=== PATIENT | female | born 1950 | race Caucasian/White ===

== ENCOUNTER 2019-05-28 09:40 | Emergency (ER) | payer MEDICARE, BC, SELFPAY ==
[2019-05-28 09:59] VITALS: BP 130/59; PULSE 78; RESP 16; TEMP 37.2; O2SAT 99
--- NOTE | 2019-05-28 10:02 | ED.SKABFB ---
HPI - Skin/Abscess/Foreign Bdy General Chief complaint: Skin/Abscess/Foreign Body Stated complaint: Rash Time Seen by Provider: 05/28/19 10:02 Source: patient and RN notes reviewed History of Present Illness HPI narrative: Patient is a 68-year-old female that presents the urgent care with complaints of poison [place] to the forehead, arms, chest. Patient states that she came in contact with poison [place] approximately 1 week ago while doing yard work and it started behind the right knee. Patient states that in some areas it has cleared up but in other areas it is causing a lot of itching and burning. Patient denies any upper respiratory symptoms. No other acute complaints. No acute distress noted. Patient read the plan of care. Related Data Home Medications Medication Instructions Recorded Confirmed diltiazem HCl 240 mg PO DAILY 05/28/19 05/28/19 hydrochlorothiazide 25 mg PO DAILY 05/28/19 05/28/19 ibuprofen 800 mg PO TID 05/28/19 05/28/19 Allergies Allergy/AdvReac Type Severity Reaction Status Date / Time No Known Allergies Allergy Verified 05/28/19 10:12 Review of Systems Review of Systems: Narrative: CONSTITUTIONAL: Denies fever, chills, or sweats. EYES: Denies visual changes, redness, or discharge. ENT: Denies rhinorrhea, congestion, sore throat, or otalgia. CARDIOVASCULAR: Denies chest pain, palpitations, or edema. RESPIRATORY: Denies cough or dyspnea. GASTROINTESTINAL: Denies abdominal pain, nausea, vomiting, or diarrhea. GENITOURINARY: Denies dysuria or hematuria. SKIN: Reports of itchy excoriated rash to the chest, right arm, forehead MUSCULOSKELETAL: Denies back pain, joint pain, or myalgia. NEUROLOGIC: Denies headache, numbness, or weakness. All other systems reviewed are negative, except as documented in HPI. PMFSH Social History Social History Gender identity (if verbalized by the patient): Female Comments At the time of my signature, I reviewed and agree with the nursing past medical, surgical, social, and family history. There is no relevant family history pertinent to the patient complaint. Exam Narrative: Exam Narrative: GENERAL: This is a well-nourished, well-developed patient, in no apparent distress. HEAD: normocephalic, atraumatic. EYES: PERRL. Sclera clear/white. Vision is grossly intact. EARS: External ears normal NOSE: External nose normal with no obvious nasal discharge THROAT: Mucous membranes moist, posterior pharynx clear. NECK: Neck supple CARDIOVASCULAR: Regular rate and rhythm without murmurs, gallops, or rubs. RESPIRATORY: Clear to auscultation. Breath sounds equal bilaterally. No wheezes, rales, or rhonchi. SKIN: Excoriated erythemic rash noted to the right antecubital fossa, midline forehead, and upper chest NEURO: awake, alert, and oriented to person, place and time. There were no obvious focal neurologic abnormalities. EXTREMITIES: No clubbing, cyanosis, or edema. Course Vital Signs Vital signs: Vital Signs Temperature 98.9 F 05/28/19 09:59 Pulse Rate 78 05/28/19 09:59 Respiratory Rate 16 05/28/19 09:59 Blood Pressure 130/59 L 05/28/19 09:59 Pulse Oximetry 99 05/28/19 09:59 Temperature 98.9 F 05/28/19 09:59 Pulse Rate 78 05/28/19 09:59 Respiratory Rate 16 05/28/19 09:59 Blood Pressure 130/59 L 05/28/19 09:59 Pulse Oximetry 99 05/28/19 09:59 Reviewed MDM - Skin/Abscess/Foreign Bdy MDM Narrative Medical decision making narrative: Advised the patient to use [id number] Claritin or Zyrtec for itch relief daily. Use steroid cream to the affected areas as directed, avoiding armpits, near the eyes, and groin. Complete steroid regimen as prescribed. If you develop any respiratory symptoms or have exposure to COVID, stop steroid. Make sure to eat and drink with the medication. Continue to use TechNu scrub to affected areas. Follow-up with PCP within 2 to 5 days or for worsening symptoms or failure to improve. Differential Diagnosis D
== END 2019-05-28 10:26 | disposition home or self-care (01) ==
PROVIDERS: Emergency Provider Nurse Practitioner Family
DX: L23.7 Allergic contact dermatitis due to plants, except food (principal); I10 Essential (primary) hypertension; M19.90 Unspecified osteoarthritis, unspecified site
CPT/HCPCS: 99203; G0463